=== PATIENT | male | born 1955 | race African-American/Black ===

== ENCOUNTER → 2019-11-12 | Outpatient (CLI) | payer OTHER ==
[~2019-11-12] MED LIST: IRON TABLETS325 MG PO; KLOR-CON 1010 MEQ PO; NORVASC 10MG10 MG PO; ZESTRIL 10MG10 MG PO; ZYRTEC 10MG10 MG PO
== END ==
LOC: COL.LAB 08:00 → COL.CAR 11-18 11:00 → EDSTATUS 11-18 11:00
DX: R94.39 Abnormal result of other cardiovascular function study (principal); Z20.828 Contact with and (suspected) exposure to other viral communicable diseases

== ENCOUNTER 2019-11-20 06:05 | Day surgery (SDC) | payer OTHER ==
[2019-11-20] VITALS (10 sets, daily range): BP systolic 127–173; BP diastolic 81–102; PULSE 54–67; TEMP 98.6
[~2019-11-20] VITALS: Ht 175.3 cm; Wt 83.0 kg
[2019-11-20] MEDS ORDERED: NORVASC 10MG10 MG PO (06:29)
[2019-11-20] MEDS ORDERED: ZYRTEC 10MG10 MG PO (06:30)
[2019-11-20] MEDS ORDERED: ZESTRIL 10MG10 MG PO (06:30)
[2019-11-20] MEDS ORDERED: KLOR-CON 1010 MEQ PO (06:31)
[2019-11-20] MEDS ORDERED: IRON TABLETS325 MG PO (06:32)
[2019-11-20 06:52] LABS: HEMATOCRIT 39.8 % (42.0-52.0); HEMOGLOBIN 12.6 g/dl (13.5-18.0); MEAN CELL VOLUME 79 fl (80.0-100.0); MEAN CORPUSCULAR HEMOGLOBIN 25 pg (27.0-31.0); MEAN CORPUSCULAR HGB CONC 32 g/dl (33.0-37.0); MEAN PLATELET VOLUME 9.6 fl (7.4-10.4); PLATELET COUNT 233 K/mm3 (130-400); RED BLOOD COUNT 5.06 M/mm3 (4.20-5.60)
[2019-11-20 06:57] LABS: INR 1.1 (0.8-3.0); PROTHROMBIN TIME 11.9 SECONDS (9.7-12.8)
[2019-11-20 07:07] LABS: CALCIUM 9.3 mg/dL (8.4-10.2); CREATININE, serum 1.1 (0.66-1.25); POTASSIUM 3.2 mmol/L (3.4-5.0)
--- NOTE | 2019-11-20 08:21 | NUR ---
SEE MERGE DOCUMENTATION FOR MEDICATION ADMINISTRATION TIMES AND INTRA/POST PROCEDURE SEDATION ASSESSMENTS. RIGHT HAND BARBEAU TEST POSITIVE.
--- NOTE | 2019-11-20 09:28 | NUR ---
Report from Da VALDIVIA. Right tband with 16 cc air, good pulses and cap refill < 3 secs. Right groin site CD&I, soft to palpation and pedal pulses palpable. VSS.
--- NOTE | 2019-11-20 13:46 | NUR ---
Patient transfered to [facility] driven by his son from wheelchair. Tolerated well, able to dress self. Denies any pain or discomfort, nausea or vomiting. All belongings and paperwork with son.
== END 2019-11-20 13:46 | disposition home or self-care (01) ==
LOC: COL.CAR
PROVIDERS: Internal Medicine Interventional Cardiology
DX: R07.9 Chest pain, unspecified (principal); I10 Essential (primary) hypertension; R94.39 Abnormal result of other cardiovascular function study
CPT/HCPCS: J1644; J2250; J3010; Q9967